=== PATIENT | male | born 1945 | race Caucasian/White ===

== ENCOUNTER 2024-10-10 14:48 | Outpatient (REF) | payer MEDICARE, SELFPAY ==
--- OUTSIDE RECORDS SUMMARY | 2024-10-10 15:44 | XMS_ITS | Clinical Summary ---
[facility] Organization [facility] Address [address] [place] [address] Care Team Providers Care Hot Stone Setter Name Role Phone Holden Sol MD Primary Care Provider [phone] Allergies No known active allergies Medications Medication Sig Dispensed Refills Start Date End Date Status atenolol (TENORMIN) tablet 25 mg Take 25 mg by mouth daily. 0 Active naproxen (NAPROSYN) 500 MG tablet Take 500 mg by mouth daily. 0 Active Active Problems No known active problems Family History Medical History Relation Name Comments Cancer Father Relation Name Status Comments Father Social History Tobacco Use Types Packs/Day Years Used Date Smoking Tobacco: Former Cigarettes Smokeless Tobacco: Never Alcohol Use Standard Drinks/Week Comments Yes 0 (1 standard drink = 0.6 oz pur e alcohol) Sex and Gender Information Value Date Recorded Sex Assigned at Not on file Gender Identity Not on file Sexual Orientation Not on file Last Filed Vital Signs Vital Sign Reading Time Taken Comments Blood Pressure 159/78 07/11/2020 10:53 AM EST Pulse 90 07/11/2020 10:53 AM EST Temperature 36.3 ??C (97.3 ??F) 07/11/2020 10:[address] Respiratory Rate - - Oxygen Saturation 100% 07/11/2020 10:53 AM EST Inhaled Oxygen Concentration - - Weight 83.9 kg (185 lb) 07/11/2020 10:53 AM EST Height 188 cm (6' 2 ) 07/11/2020 10:53 AM EST Body Mass Index 23.75 07/11/2020 10:53 AM EST Plan of Treatment Health Maintenance Due Date Last Done Comments COVID-19 Vaccine (#1) 02/29/1946 Depression Screening 1955 Preventative Health Evaluation 1961 Fall Risk Assessment 2008 RSV Adult > 60+ Yrs or (1 - 1-dose 75+ series) 2018 Shingrix-Zoster Vaccine (2 of 2) 04/18/2020 02/22/2020 DTap / Tdap / Td (2 - Td or Tdap) 12/09/2021 12/10/2011 Influenza Vaccine (#1) 2024 8, 07/01/2017, 08/02/2016, Additional history exists Pneumococcal Vaccine Completed 05/17/2018, 11/01/2013, 09/17/2005 Hepatitis B Vaccines Aged Out No long er eligible based on patient's age to complete this topic RSV Ped < 20 months Aged Out No longe r eligible based on patient's age to complete this topic Care Teams Hot Stone Setter Relationship Specialty Start Date End Date Holden Sol MD PCP - General Internal Medicine 07/11/20
--- OUTSIDE RECORDS SUMMARY | 2024-10-10 15:44 | XMS_ITS | Clinical Summary ---
Author Organization [facility] Address [address] [place] [address] Care Team Providers Care Seal Delivery Vehicle Team Technician Name Role Phone Holden Sol MD Primary Care Provider [phone] Allergies No known active allergies Medications amLODIPine (NORVASC) 5 mg tablet Take 1 Tablet by mouth daily. 4 Active tamsulosin (FLOMAX) 0.4 mg 24 hr capsule Take 1 Capsule by mouth daily for 360 days. Take 30 mins after same meal every day. - Oral Active cyanocobalamin (VITAMIN B-12) 1,000 mcg tablet TAKE 1 TABLET BY MOUTH EVERY DAY 90 tablet 1 4 Active folic acid (FOLVITE) 1 mg tablet Take 1 tablet (1,000 mcg total) by mouth 1 (one) time each day. 90 tablet 1 5 Active folic acid (FOLVITE) 1 mg tablet TAKE 1 TABLET BY MOUTH EVERY DAY 4 10/04/19 25 Discontinu ed(Reorder ) Active Problems Problem Noted Date Diagnosed Date Macrocytosis 06/14/2020 Hyperlipidemia 08/08/2019 Erectile dysfunction 05/24/2012 Hypertension 11/04/2010 Spinal stenosis 03/11/2009 Overview (05/25/2024): Severe to the point of almost not being able to walk at all. Has made good recovery with surgery. Still a little weakness in movement of the right foot however. Some metatarsal numbness residual. Immunizations Name Administration Dates Next Due Influenza Quadravalent, MDCK , 0.5ml, with preservative (Flucelvax) 6mo and older 07/01/2017 Influenza trivalent, 0.5mL ( Fluzone High-dose) 65yo and older 05/21/2022,05/06/2020,05/17/2018 Influenza trivalent, with pr eservative (Fluzone; Afluria) 6mo and older 08/02/2016,06/23/2015,07/17/2014,05/25,05/24/2012,05/27/2011,07/11/2010 ,06/26/2008,06/29/2007,07/31/2006,03/2005 Influenza, Unspecified 05/31/2023,06/14/2021 Pfizer (ages 12 & older) Biv alent, COVID-19 05/21/2022 Pneumococcal conjugate 13 va lent (Prevnar 13, PCV13) 2mo and older 05/17/2018 Pneumococcal polysaccharide 23 valent (Pneumovax 23) 2yo and older 11/01/2013,09/17/2005 Td Tetanus diptheria (Tdvax) 7yo and older 09/18/2003 Tdap Tetanus diptheria acell ular pertussis (Boostrix; Adacel) 7yo and older 04/16/2022,12/10/2011 Zoster Live 12/10/2011 Zoster recombinant (Shingrix ) 19yo and older 05/06/2020,02/22/2020 Surgical History Surgery Date Site/Laterality Comments BACK SURGERY PROCEDURE: HISTORICAL BACK SURGERY; COMMENT: for spinal stenosis COLONOSCOPY PROCEDURE: [place] COLONOSCOPY STOMA DX INCLUDING COLLJ SPEC SPX; COMMENT: 09/17/04, NORMAL EXAM COLONOSCOPY 09/19/15 PROCEDURE: [place] COLONOSCOPY STOMA W/RMVL ANGY POLYP/OTH LES SNARE; COMMENT: adenomas and tics; repeat in 3 yrs Medical History Medical History Date Comments Hypertension 11/04/2010 DX:Hypertension Erectile dysfunction 05/24/2012 DX:Erectile dysfunction Family History Medical History Relation Name Comments Colon cancer Father colon cancer AT the age of 90 Heart attack Mother myocardial infa rction, AT THE AGE OF 70 Blindness Neg Hx Cataracts Neg Hx Glaucoma Neg Hx Macular degeneration Neg Hx Strabismus Neg Hx Relation Name Status Comments Father Mother Social History Tobacco Use Types Packs/Day Years Used Date Smoking Tobacco: Former Smokeless Tobacco: Never Alcohol Use Standard Drinks/Week Comments Yes 0 (1 standard drink = 0.6 oz pur e alcohol) Sex and Gender Information Value Date Recorded Sex Assigned at Male 04/16/2022 10:41 PM EDT Legal Sex Male 3:59 PM EDT Gender Identity Male 04/16/2022 10:41 PM EDT Sexual Orientation Straight 04/16/2022 10 :41 PM EDT Obstetrics History Last Filed Vital Signs Vital Sign Reading Time Taken Comments Blood Pressure 152/64 07/05/2024 3:57 PM EST provider to recheck bp Pulse 92 07/05/2024 3:57 PM EST Temperature 36.6 ??C (97.8 ??F) 07/05/2024 3 :57 PM EST Respiratory Rate 14 07/05/2024 3:57 PM EST Oxygen Saturation 100% 07/05/2024 3:5 7 PM EST Inhaled Oxygen Concentration - - Weight 77.7 kg (171 lb 6.4 oz) 07/05/2024 3:57 PM EST Height 188 cm (6' 2 ) 07/05/2024 3:57 PM EST Body Mass Index 22.01 07/05/2024 3:57 PM EST Plan of Treatment Health Maintenance Due Date Last Done Comments Colorectal Cancer Screening: Colonoscopy 05/30/2021 Social Influencers of Health Screening 05/30/2021 Hypertension/CHF/CAD Annual BMP Blood Test 06/01/2025 06/01/2024, 06/08/2023 Falls Risk Assessment 07/05/2025 07/05/2024, 023 Medicare Annual Wellness Visit 07/05/2025 07/05/2024 Depression Screening 07/06/2025 07/06/2024, 06/30/20 23 Cholesterol Screening (Lipid Panel) 06/01/2029 06/01/2024, 06/08/2023 DTaP,Tdap,and Td Vaccines (4 - Td or Tdap) 04/16/2032 04/16/2022, 12/10/2011, 09/18/2003 Pneumococcal Vaccine: 50+ Years Completed 05/17/2018, 11/01/2013, 09/17/2005 Zoster Vaccines Completed 05/06/2020, 01/29, 12/10/2011 RSV Immunization Patients 60+ Years Old Completed 05/04/2023 COVID-19 Vaccine Completed 05/09/2024, 06/2024, 05/21/2023, Additional history exists Influenza Vaccine Completed 05/09/2024, , 05/21/2023, Additional history exists HIB Vaccines Aged Out No longer eligi ble based on patient's age to complete this topic HPV Vaccines Aged Out No longer eligi ble based on patient's age to complete this topic Hepatitis A Vaccines Aged Out No long er eligible based on patient's age to complete this topic Hepatitis B Vaccines Aged Out No long er eligible based on patient's age to complete this topic IPV Vaccines Aged Out No longer eligi ble based on patient's age to complete this topic MMR Vaccines Aged Out No longer eligi ble based on patient's age to complete this topic Meningococcal ACWY Vaccine Aged Out N o longer eligible based on patient's age to complete this topic Meningococcal B Vacine Aged Out No lo nger eligible based on patient's age to complete this topic RSV Immunization Patients Under 20 months Aged Out No longer eligible based on patient's age to complete this topic Varicella Vaccines Aged Out No longer eligible based on patient's age to complete this topic Procedures Procedure Name Priority Date/Time Associated Diagnosis Comments DEPRESSION SCREENING Routine 06/30/2023 FALLS RISK ASSESSMENT Routine 06/30/2023 ANNUAL BMP BLOOD TEST Routine 06/08/2023 LIPID PANEL Routine 06/08/2023 from Last 3 Months or Most Recently Relevant to Health Maintenance Results * Falls Risk Assessment (06/30/2023) Pathologist [facility] Falls Risk Assessment Abstracted Historical Provider MD HEALTH MAINTENANCE Final Result * Depression Screening (06/30/2023) Pathologist [facility] Depression Screening Abstracted us Historical Provider MD HEALTH MAINTENANCE Final Result * Annual BMP Blood Test (06/08/2023) Pathologist [facility] Annual BMP Blood Test Abstracted us Historical Provider HEALTH MAINTENANCE Final Result * Lipid panel (06/08/2023) LDL/HDL Ratio 3 0 - 4 Triglycerides 71 0 - 150 mg/dL Cholesterol 169 0 - 200 mg/dL HDL 61 >=40 mg/dL LDL Cholesterol 94 0 - 100 mg/dL Blood Venous blood specimen / Unknown Historical Provider LAB BLOOD ORDERABLES Kelly l Result from Last 3 Months or Most Recently Relevant to Health Maintenance Insurance MEDICARE Care Teams Seal Delivery Vehicle Team Technician Relationship Specialty Start Date End Date Holden Sol MD [address] [place] [id number] PCP - General Internal Medicine 04/15/15
[2024-10-10 16:19] LABS: Vitamin B12 994 pg/mL (200-900)
== END 2024-10-10 14:49 | disposition home or self-care (01) ==
LOC: HO.LAB 14:48
PROVIDERS: PCP Internal Medicine; Visit Provider Psychiatry & Neurology Neurology
DX: G30.9 Alzheimer's disease, unspecified (principal)
CPT/HCPCS: 36415; 82607

== ENCOUNTER 2025-02-01 08:48 | Outpatient (REF) | payer MEDICARE, SELFPAY ==
--- OUTSIDE RECORDS SUMMARY | 2025-02-01 09:26 | XMS_ITS | Clinical Summary ---
Author Organization [facility] Address [address] [place] [address] Care Team Providers Care Acetylene Plant Operator Name Role Phone Holden Sol MD Primary Care Provider [phone] Allergies No known active allergies Medications Medication [...] Td or Tdap) 12/09/2021 12/10/2011 Influenza Vaccine (Season Ended) 2025 05/17/2018, 07/01/2017, 08/02/2016, Additional history exists Pneumococcal Vaccine Completed 05/17/2018, 11/01/2013, 09/17/2005 Hepatitis B Vaccines Aged Out No long er eligible based on patient's age to complete this topic RSV Ped < 20 months Aged Out No longe r eligible based on patient's age to complete this topic Care Teams Acetylene Plant Operator Relationship Specialty Start Date End Date Holden Sol MD PCP - General Internal Medicine 07/11/20
== END 2025-02-01 08:49 | disposition home or self-care (01) ==
LOC: HO.LAB 08:48
PROVIDERS: PCP Internal Medicine; Visit Provider Psychiatry & Neurology Neurology
DX: G30.9 Alzheimer's disease, unspecified (principal); F02.80 Dementia in other diseases classified elsewhere, unspecified severity, without behavioral disturbance, psychotic disturbance, mood disturbance, and anxiety
CPT/HCPCS: 82542

== ENCOUNTER 2025-03-08 19:39 | Outpatient (REF) | payer MEDICARE, OTHER, SELFPAY ==
--- NOTE | ~2025-03-08 | MR_ITS ---
CLINICAL HISTORY: G30.9 - Alzheimers disease, unspecified --- Additional Notes or Special Instructions: MRI is urgent as the next dose of the med cannot be given before this MR Brain without gadolinium Comparison: None provided Findings: No restricted diffusion. No intra-axial mass or hemorrhage. No midline shift. No hydrocephalus. Age appropriate cerebral volume loss. Patchy high FLAIR signal within the periventricular and subcortical white matter. Vascular flow voids are intact. The orbits are normal. Mastoids are clear. Severe bilateral ethmoid sinus mucosal thickening. Mild bilateral maxillary sinus mucosal thickening. Right maxillary sinus retention cysts. No focal bone lesion. IMPRESSION: 1. No acute process. 2. Volume loss and small vessel ischemic disease. 3. Sinus disease. This document has been electronically signed by: Marimar Ortiz MD on 03/11/2025 15:04:15
== END 2025-03-08 19:40 | disposition home or self-care (01) ==
LOC: HO.MRI 19:39
PROVIDERS: PCP Internal Medicine; Visit Provider Psychiatry & Neurology Neurology
DX: G30.9 Alzheimer's disease, unspecified (principal); F02.80 Dementia in other diseases classified elsewhere, unspecified severity, without behavioral disturbance, psychotic disturbance, mood disturbance, and anxiety
CPT/HCPCS: 70551

== ENCOUNTER → 2025-03-08 19:39 | Outpatient (BNV) | payer MEDICARE, OTHER, SELFPAY | PROVIDERS: PCP Internal Medicine; Visit Provider Radiology Diagnostic Radiology | DX: G30.9 Alzheimer's disease, unspecified (principal); I67.82 Cerebral ischemia; J34.89 Other specified disorders of nose and nasal sinuses | CPT/HCPCS: 70551 ==

== ENCOUNTER 2025-04-04 16:26 | Outpatient (REF) | payer MEDICARE, OTHER, SELFPAY ==
--- NOTE | ~2025-04-04 | MR_ITS ---
EXAMINATION: MR BRAIN WITHOUT CONTRAST CLINICAL INFORMATION: Alzheimer's disease. COMPARISON: March 08, 2025. TECHNIQUE: MRI of the brain was obtained using routine sequences without contrast. FINDINGS: No restricted diffusion. No acute intracranial hemorrhage. No mass effect, midline shift, hydrocephalus or herniation. [place]-white matter differentiation is normal. Punctate susceptibility signal, subcortical left frontal white matter. 3 mm focal hyperintense T2 FLAIR signal, left frontal deep white matter. 5 mm focal hyperintense T2 FLAIR signal, right frontal deep matter. Prominence of the extra-axial CSF spaces cerebral sulci and ventricles involving mostly the frontal temporal lobes. Old lacunar infarcts with the cribriform pattern, basal ganglia. Left ventral deformity of the tj related to a prominent vertebral vascular system. Flow-void signal within the main cerebral vessels is normal. Sellar/suprasellar region demonstrated no gross masses or signal abnormality. There is normal position of the cerebellar tonsils. MR/MR head/brain wo con IMPRESSION: ARIA-E : Negative. ARIA-H : Negative. Old microhemorrhages, subcortical left frontal lobe. No acute brain abnormality. Electronically signed by: Kevin Hernandez MD 04/05/2025 07:14 AM EDT
--- OUTSIDE RECORDS SUMMARY | 2025-04-04 16:36 | XMS_ITS | Clinical Summary ---
Author Organization [facility] Address [address] [place] [address] Care Team Providers Care Pastoral Ministries Professor Name Role Phone Holden Sol MD Primary Care Provider [phone] Allergies No known active allergies Medications Medication [...] 90 07/11/2020 10:53 AM EST Temperature 36.3 C (97.3 F) 07/11/2020 10:53 AM EST Respiratory Rate - - Oxygen Saturation 100% [...] or Tdap) 12/09/2021 12/10/2011 Influenza Vaccine (#1) 2025 8, 07/01/2017, 08/02/2016, Additional history exists Pneumococcal Vaccine Completed 05/17/2018, 11/01/2013, 09/17/2005 Hepatitis B Vaccines Aged Out No long er eligible based on patient's age to complete this topic RSV Ped < 20 months Aged Out No longe r eligible based on patient's age to complete this topic Care Teams Pastoral Ministries Professor Relationship Specialty Start Date End Date Holden Sol MD PCP - General Internal Medicine 07/11/20
--- OUTSIDE RECORDS SUMMARY | 2025-04-04 16:36 | XMS_ITS ---
[facility] Name [facility] Organization Unknown Care Team Organization Name Specialty Phone Email Start Date End Da guzman [facility] Sweta Primary Care 05/06/2023 04/17/2024 [facility] Tavares Paredes Primary Care 07/07/2022 04/17/2024
--- OUTSIDE RECORDS SUMMARY | 2025-04-04 16:36 | XMS_ITS | Clinical Summary ---
Author Organization [facility] [place] Address [address] [place] [address] Care Team Providers Care Switch Foreman Name Role Phone Holden Sol MD Primary Care Provider [phone] Allergies No known active allergies Medications tamsulosin (FLOMAX) 0.4 mg 24 hr capsule Take 1 Capsule by mouth daily for 360 days. Take 30 mins after same meal every day. - Oral Active folic acid (FOLVITE) 1 mg tablet Take 1 tablet (1,000 mcg total) by mouth 1 (one) time each day. 90 tablet 1 10/04/2024 Active amLODIPine (NORVASC) 5 mg tablet Take 1.5 tablets (7.5 mg total) by mouth 1 (one) time each day. 45 each 3 01/16/2025 Active cyanocobalamin (VITAMIN B-12) 1,000 mcg tablet TAKE 1 TABLET BY MOUTH EVERY DAY 90 tablet 1 02/12/2025 Active Active Problems Problem Noted Date Diagnosed Date Macrocytosis 06/14/2020 Hyperlipidemia 08/08/2019 Erectile dysfunction 05/24/2012 Hypertension 11/04/2010 Spinal stenosis 03/11/2009 Overview (05/25/2024): Severe to the point of almost not being able to walk at all. Has made good recovery with surgery. Still a little weakness in movement of the right foot however. Some metatarsal numbness residual. Encounters Date Type Department Care Team Description 01/26/2025 1:47 PM EDT - 01/26/2025 11:59 PM EDT Hospital Encounter Radiology Department - [address] [phone] Alzheimer's disease, unspecified (CODE) ([facility] V24, [facility] V28) Discharge Disposition: Home or Self Care 01/16/2025 9:30 AM EDT Office Visit Adult Medicine [address] [phone] Holden Sol MD Right foot pain (Primary Dx); Bunion of great toe; Alzheimer's disease ([facility] V24, [facility] V28); Primary hypertension from Last 3 Months Immunizations Name Administration Dates Next Due Influenza [...] SURGERY; COMMENT: for spinal stenosis COLONOSCOPY PROCEDURE: CA COLONOSCOPY STOMA DX INCLUDING COLLJ SPEC SPX; COMMENT: 09/17/04, NORMAL EXAM COLONOSCOPY 09/19/15 PROCEDURE: CA COLONOSCOPY STOMA W/RMVL ANGY POLYP/OTH LES SNARE; [...] drink = 0.6 oz pur e alcohol) Housing Instability Answer Date Recorde d Are you worried that in the next 2 months you may not have stable housing? No 01/12/2025 Food Access & Nutrition Answer Date Rec orded Do you have access to a vari ety of food including fruits and vegetables? Yes 01/12/2025 Health Literacy Answer Date Recorded How often do you need to hav e someone help you when you read instructions, pamphlets, or other written material from your doctor or pharmacy? Never 01/12/2025 Caregiver: How often do you need to have someone help you when you read instructions, pamphlets, or other written material from your doctor or pharmacy? Not on file 01/12/2025 Financial Risk Answer Date Recorded How hard is it for you to pa y for the very basics like food, housing, medical care, and air conditioning / heating? Not very hard 01/12/2025 Transportation Answer Date Recorded Has the lack of transportati on kept you from meetings, work, or from getting things needed for daily living? No Has the lack of transportati on kept you from medical appointments or from getting medications? No 01/12/2025 Social Isolation Answer Date Recorded How often do you feel lonely or isolated from th ose around you? Never 01/12/2025 Food Risk Answer Date Recorded Within the past 12 months we worried whether our food would run out before we got money to buy more. Never true 01/12/2025 Within the past 12 months th e food we bought just didn't last and we didn't have money to get more. Never true 01/12/2025 Dependent Care Answer Date Recorded Do you need help finding or paying for care for your loved ones. For example, childcare worker or elderly care for an older adult? No 01/12/2025 Education Answer Date Recorded Do you think completing more education or training, like finishing a GED, going to college, or learning a trade, would be helpful for you? No 01/12/2025 Employment and Income Answer Date Recor ded During the last four weeks, have you been actively looking for work? No 01/12/2025 Living Situation Answer Date Recorded What is your living situation? 0 01/12/2025 Sex and Gender Information Value Date Recorded Sex Assigned at Male 04/16/2022 10:41 PM EDT Legal Sex Male 3:59 PM EDT Gender Identity Male 04/16/2022 10:41 PM EDT Sexual Orientation Straight 04/16/2022 10 :41 PM EDT Obstetrics History Last Filed Vital Signs Vital Sign Reading Time Taken Comments Blood Pressure 148/82 01/16/2025 9:28 AM EDT Pulse 102 01/16/2025 9:28 AM EDT Temperature 36.1 C (96.9 F) 01/16/2025 9:28 AM EDT Respiratory Rate 20 01/16/2025 9:28 AM EDT Oxygen Saturation 100% 07/05/2024 3:57 PM EST Inhaled Oxygen Concentration - - Weight 80.7 kg (178 lb) 01/16/2025 9:28 AM EDT Height 188 cm (6' 2 ) 01/16/2025 9:28 AM EDT Body Mass Index 22.85 01/16/2025 9:28 AM EDT Plan of Treatment Upcoming Encounters Date Type Department Care Team (Late st Contact Info) Description 04/24/2025 1:15 PM EDT Office Visit Adult Medicine [facility] [address] [place] [address] Holden Sol MD [address] [place] [address] Health Maintenance Due Date Last Done Comments Colorectal Cancer Screening: Colonoscopy 05/30/2021 Influenza Vaccine (#1) 2025 , 05/31/2023, 05/21/2023, Additional history exists Falls Risk Assessment 07/05/2025 07/05/2024, 023 Medicare Annual Wellness Visit 07/05/2025 07/05/2024 Social Influencers of Health Screening 01/12/2026 01/12/2025 Hypertension/CHF/CAD Annual BMP Blood Test 01/16/2026 01/16/2025, 06/01/2024, 06/08/2023 Cholesterol Screening (Lipid Panel) 06/01/2029 06/01/2024, 06/08/2023 DTaP,Tdap,and Td Vaccines (4 - Td or Tdap) 04/16/2032 04/16/2022, 12/10/2011, 09/18/2003 Pneumococcal Vaccine: 50+ Years Completed 05/17/2018, 11/01/2013, 09/17/2005 Zoster Vaccines Completed 05/06/2020, 01/29, 12/10/2011 RSV Immunization Adult Patients Completed 05/04/2023 COVID-19 Vaccine Completed 11/17/2024, 05/2024, 11/08/2023, Additional history exists Depression Screening Completed 01/12/2025, 06/30/20 23 HIB Vaccines Aged Out No longer eligi [...] age to complete this topic Meningococcal B Vaccine Aged Out No l onger eligible based on patient's age to complete this topic RSV Immunization Patients Under 20 months Aged Out No longer eligible based on patient's age to complete this topic Varicella Vaccines Aged Out No longer eligible based on patient's age to complete this topic Procedures Procedure Name Priority Date/Time Associated Diagnosis Comments EXTERNAL MRI REPORT 03/08/2025 EXTERNAL MRI REPORT 03/08/2025 MR BRAIN WO CONTRAST Routine 01/26/2025 3:16 PM EDT Alzheimer's disease, unspecified (CODE) ([facility] V24, [facility] V28) URIC ACID Routine 01/16/2025 10:26 AM EDT Right foot pain Bunion of great toe COMPREHENSIVE METABOLIC PANEL Routine 01/16/2025 10:26 AM EDT Bunion of great toe DEPRESSION SCREENING Routine 06/30/2023 FALLS RISK ASSESSMENT Routine 06/30/2023 LIPID PANEL Routine 06/08/2023 from Last 3 Months or Most Recently Relevant to Health Maintenance Results * External MRI Report (03/08/2025) Only the most recent of2 resultswithin the time period is included. Anatomical Region Laterality Modality Magnetic Resonan ce Provider [facility] MRI PROCEDURES Final Result * MR Brain wo Contrast (01/26/2025 3:16 PM EDT) Anatomical Region Laterality Modality Head and Neck Magnetic Resonan ce 01/26/2025 4:46 PM EDT Impressions 01/26/2025 4:55 PM EDT 1. No acute intracranial findings. 2. Unchanged chronic findings, including brain volume loss predominantly of the parietal lobes. -------- FINAL REPORT -------- Dictated By: Arleth Rodríguez Dictated Date: 01/26/2025 16:46 ET Assigned Physician: Arleth Rodríguez Reviewed and Electronically Signed By: Arleth Rodríguez Signed Date: 01/26/2025 16:55 ET Workstation ID: [id number] Transcribed By: Self Edit Transcribed Date: 01/26/2025 16:46 ET Narrative 01/26/2025 4:55 PM EDT MR BRAIN WO CONTRAST TECHNIQUE: Multisequence MRI of the brain was performed without administration of intravenous contrast. COMPARISON: Brain MRI on July 07, 2024. HISTORY: Memory loss. FINDINGS: Brain Parenchyma: Redemonstration of brain volume loss predominantly of the parietal lobes. No shift of midline structures. Unchanged tiny focus of susceptibility artifact in the lateral aspect of the left frontal lobe (901:17). No evidence of acute parenchymal hemorrhage, acute infarct or mass effect. Similar scattered white matter lesions, predominantly within bilateral frontal lobes. Ventricular System and Extra-Axial Spaces: The ventricles and cortical sulci are prominent, as commonly seen in patients of this age. No hydrocephalus. No extra-axial fluid collection. Extracranial Structures: Arterial flow voids in the skull base are present. Mucosal thickening of the ethmoid air cells and maxillary sinuses, likely inflammatory. Mucous retention cyst within the right maxillary sinus. Bilateral mastoid air cells are clear. Procedure Note Arleth Rodríguez MD - 01/26/2025 MR BRAIN WO CONTRAST TECHNIQUE: Multisequence MRI of the brain was performed withoutadministration of intravenous contrast. COMPARISON: Brain MRI on July 07, 2024. HISTORY: Memory loss. FINDINGS: Brain Parenchyma: Redemonstration of brain volume loss predominantly ofthe parietal lobes. No shift of midline structures. Unchanged tiny focusof susceptibility artifact in the lateral aspect of the left frontal lobe(901:17). No evidence of acute parenchymal hemorrhage, acute infarct ormass effect. Similar scattered white matter lesions, predominantly withinbilateral frontal lobes. Ventricular System and Extra-Axial Spaces: The ventricles and corticalsulci are prominent, as commonly seen in patients of this age. Nohydrocephalus. No extra- axial fluid collection. Extracranial Structures: Arterial flow voids in the skull base arepresent. Mucosal thickening of the ethmoid air cells and maxillarysinuses, likely inflammatory. Mucous retention cyst within the rightmaxillary sinus. Bilateral mastoid air cells are clear. IMPRESSION: 1. No acute intracranial findings. 2. Unchanged chronic findings, including brain volume loss predominantlyof the parietal lobes. -------- FINAL REPORT -------- Dictated By: Arleth Rodríguez Dictated Date: 01/26/2025 16:46 ET Assigned Physician: Arleth Rodríguez Reviewed and Electronically Signed By: Arleth Rodríguez Signed Date: 01/26/2025 16:55 ET Workstation ID: [id number] Transcribed By: Self Edit Transcribed Date: 01/26/2025 16:46 ET Nancy Balderas MD IMG MRI PROCEDURES Final Re sult * Uric acid (01/16/2025 10:26 AM EDT) Pathologist [facility] Uric Acid 7.6 3.7 - 9.2 mg/dL LAB CHEMISTRY METHOD 01/16/2025 12:49 PM EDT [facility] Blood Venous blood specimen / Unknown Venipuncture / Unknown 01/16/2025 10:26 AM EDT 01/16/2025 10:26 AM EDT Holden Sol MD LAB BLOOD ORDERABLES Final Resul t [facility] [address] [place] [address], [place] [phone] * (ABNORMAL) Comprehensive metabolic panel (01/16/2025 10:26 AM EDT) Pathologist [facility] Sodium 140 133 - 145 mmol/L LAB CHEMISTRY METHOD 01/16/2025 12:49 PM EDT [facility] Potassium 4.3 3.5 - 5.5 mmol/L LAB CHEMISTRY METHOD 01/16/2025 12:49 PM EDT [facility] Chloride 110 96 - 110 mmol/L LAB CHEMISTRY METHOD 01/16/2025 12:49 PM EDT [facility] CO2 22 21 - 32 mmol/L LAB CHEMISTRY METHOD 01/16/2025 12:49 PM EDT [facility] Anion Gap 8 3 - 11 LAB CHEMISTRY METHOD 01/16/2025 12:49 PM EDT [facility] Glucose 93 70 - 100 mg/dL LAB CHEMISTRY METHOD 01/16/2025 12:49 PM [facility] BUN 17 5 - 25 mg/dL LAB CHEMISTRY METHOD 01/16/2025 12:49 PM [facility] Creatinine 1.25 0.70 - 1.30 mg/dL LAB CHEMISTRY METHOD 01/16/2025 12:49 PM [facility] eGFR 58(L) >=60 mL/min/1. 73m2 LAB CHEMISTRY METHOD 01/16/2025 12:49 PM [facility] Comment:Calculation based on the Chronic Kidney Disease Epidemiology Collaboration (CKD-EPI) equation refit without adjustment for race. BUN/Creatinine Ratio 13.6 LAB CHEMISTRY METHOD 01/16/2025 12:49 PM [facility] Calcium 9.5 8.5 - 10.5 mg/dL LAB CHEMISTRY METHOD 01/16/2025 12:49 PM [facility] AST (SGOT) 14 10 - 42 unit/L LAB CHEMISTRY METHOD 01/16/2025 12:49 PM [facility] ALT (SGPT) 18 10 - 60 unit/L LAB CHEMISTRY METHOD 01/16/2025 12:49 PM [facility] Alkaline Phosphatase 86 42 - 121 unit/L LAB CHEMISTRY METHOD 01/16/2025 12:49 PM [facility] Total Protein 7.1 6.0 - 8.0 g/dL LAB CHEMISTRY METHOD 01/16/2025 12:49 PM [facility] Albumin 3.7 3.2 - 5.0 g/dL LAB CHEMISTRY METHOD 01/16/2025 12:49 PM [facility] Total Bilirubin 1.0 0.0 - 1.4 mg/dL LAB CHEMISTRY METHOD 01/16/2025 12:49 PM [facility] Blood Venous blood specimen / Unknown Venipuncture / Unknown 01/16/2025 10:26 AM EDT 01/16/2025 10:26 AM EDT Holden Sol MD LAB BLOOD ORDERABLES Final [facility]ul [facility] [address] [place] [address], * Falls Risk Assessment (06/30/2023) Falls Risk Assessment Abstracted Historical Provider HEALTH MAINTENANCE Final Result * Depression Screening (06/30/2023) Depression Screening Abstracted Historical Provider HEALTH MAINTENANCE Final Result * [...] Recently Relevant to Health Maintenance Insurance MEDICARE [facility] Care Teams Switch Foreman Relationship Specialty Start Date End Date Holden Sol MD [address] [place] [address] PCP - General Internal Medicine 04/15/15
== END 2025-04-04 16:27 | disposition home or self-care (01) ==
LOC: HO.MRI 16:26
PROVIDERS: PCP Internal Medicine; Visit Provider Psychiatry & Neurology Neurology
DX: G30.9 Alzheimer's disease, unspecified (principal); F02.80 Dementia in other diseases classified elsewhere, unspecified severity, without behavioral disturbance, psychotic disturbance, mood disturbance, and anxiety
CPT/HCPCS: 70551

== ENCOUNTER → 2025-04-04 16:31 | Outpatient (BNV) | payer MEDICARE, OTHER, SELFPAY | PROVIDERS: PCP Internal Medicine; Visit Provider Radiology Diagnostic Radiology | DX: G30.9 Alzheimer's disease, unspecified (principal) | CPT/HCPCS: 70551 ==

== ENCOUNTER 2025-04-16 15:28 | Outpatient (AMB) | payer MEDICARE, OTHER, SELFPAY ==
--- NOTE | 2025-04-16 15:50 | A.OFFVIS_ITS ---
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 An MRI of brain was done that revealed mild atrophy, and he was referred here. His clinical evaluation suggested mild Alzheimer type dementia (MOCA 25). His brain myloid PET done in Sep was positive. After discussing risks and benefits, Kisunla (donanemab) was started on January 23, 2025. He is presenting with management of Alzheimer's Disease and coordination for infusion therapy. During recent infusion therapies for Alzheimer's management, the patient reported significant side effects, including chills and sore back, necessitating post-procedural rest and assistance for transportation. Notably, the adverse reactions intensified in subsequent infusions, prompting consideration for premedication to alleviate symptoms. The patient is scheduled for a double dosage infusion on April 25, with the subsequent session planned for May 15. Previous MRI findings were stable, offering reassurance regarding treatment outcomes. The patient noted improved dream patterns when on oral Alzheimer medication but required dosage adjustments due to suboptimal therapeutic effects. Discussions included the potential necessity of liver function tests to monitor medication impacts. [facility] Medical History (Updated 04/16/25 @ 15:55 by Nancy Balderas MD) Alzheimer dementia Review of Systems Const Details: - Neurological: Reports improved dream quality with medication; Denies any new neurological symptoms. - Musculoskeletal: Reports back pain after infusions, primarily in the solar plexus area. - Psychiatric: Reports increased quality of dreams. - General: Reports chills as a side effect of infusion therapy. - Gastrointestinal: Denies any liver function concerns, pending assessment. Physical Exam Neuro Other: Mental Status: Alert and oriented to person, place, and time. Normal attention. Normal spontaneous speech, fluency, and comprehension. Cranial Nerves: CN II: Visual sneed full to confrontation, visual acuity intact. CN III, IV, : Pupils equal, round, reactive to light and accommodation. Extraocular movements are normal. CN V: Facial sensation is normal. CN VII: Facial movements symmetrical. CN VIII: Hearing intact to bedside conversation is normal. CN IX, X: Palate elevates symmetrically. CN XI: Shoulder shrug and head turn symmetrical. CN XII: Tongue midline without atrophy or fasciculations. Extrapyramidal: Full facial expressions and blinking. No rigidity. Movements are appropriate with no tremor or abnormality. Speech: Normal; no dysarthria or tremor. Assessment & Plan Assessment & Plan (1) Alzheimer dementia: Comment: MRI brain WO at [facility] on Apr 04, 2025: No change MRI brain WO at [facility] on January 26, 2025: Mod cortical atrophy, more pronounced in parietal regions, no new lesion MRI brain WO at [facility] in Jun 2024: Biparietal atrophy (reported) Brain amyloid PET in [facility] in Sep 2024: + study Code(s): G30.9 - Alzheimer's disease, unspecified; F02.80 - Dementia in other diseases classified elsewhere, unspecified severity, without behavioral disturbance, psychotic disturbance, mood disturbance, and anxiety Category: Medical Qualifiers: Alzheimer's disease onset: late onset Dementia severity: mild Dementia behavioral or psychological symptom: without behavioral, psychotic, or mood d isturbance or anxiety Qualified Code(s): G30.1 - Alzheimer's disease with late onset; F02.A0 - Dementia in other diseases classified elsewhere, mild, without behavioral disturbance, psychotic disturbance, mood disturbance, and anxiety Plan Impression: a: Alzheimer disease, mild b: Short-term side effects from Kisunla infusion Rec: a: Pre-med with Tylenol and Benadryl for infusion b: Continue infusion for now c: LFTs d: Donepezil 10mg a day Medications: New donepezil 10 mg PO BEDTIME 90 tabs 0RF Coding Level of Care Code Est Pt Level 5 (46455) Diagnoses Mild late onset Alzheimer's dementia without behavioral disturbance, psychotic disturbance, mood disturbance, or anxiety G30.1; F02.A0 Alzheimer's disease onset: late onset Dementia severity: mild Dementia behavioral or psychological symptom: without behavioral, psychotic, or mood disturbance or anxiety
--- OUTSIDE RECORDS SUMMARY | 2025-04-16 15:59 | XMS_ITS | Clinical Summary ---
Author Organization [facility] Address [address] [place] [address] Care Team Providers Care Tool Tender Name Role Phone Holden Sol MD Primary Care Provider [phone] Allergies No known active allergies Medications Medication [...] age to complete this topic Care Teams Tool Tender Relationship Specialty Start Date End Date Holden Sol MD PCP - General Internal Medicine 07/11/20
== END 2025-04-16 16:30 | disposition home or self-care (01) ==
LOC: HO.HSM 15:28
PROVIDERS: PCP Internal Medicine; Visit Provider Psychiatry & Neurology Neurology
DX: G30.1 Alzheimer's disease with late onset (principal); F02.A0 Dementia in other diseases classified elsewhere, mild, without behavioral disturbance, psychotic disturbance, mood disturbance, and anxiety
CPT/HCPCS: 99214

== ENCOUNTER → 2025-04-16 15:28 | Outpatient (BNVA) | payer MEDICARE, OTHER, SELFPAY | PROVIDERS: PCP Internal Medicine; Visit Provider Psychiatry & Neurology Neurology | DX: G30.1 Alzheimer's disease with late onset (principal); F02.A0 Dementia in other diseases classified elsewhere, mild, without behavioral disturbance, psychotic disturbance, mood disturbance, and anxiety | CPT/HCPCS: 99212 ==

== ENCOUNTER → 2025-07-16 17:57 | Outpatient (BNV) | payer MEDICARE, OTHER, SELFPAY | PROVIDERS: PCP Internal Medicine; Visit Provider Radiology Diagnostic Radiology | DX: G30.1 Alzheimer's disease with late onset (principal); I67.82 Cerebral ischemia; J34.89 Other specified disorders of nose and nasal sinuses; H44.529 Atrophy of globe, unspecified eye | CPT/HCPCS: 70551 ==

== ENCOUNTER 2025-07-16 17:58 | Outpatient (REF) | payer MEDICARE, OTHER, SELFPAY ==
--- NOTE | ~2025-07-16 | MR_ITS ---
EXAMINATION: MR BRAIN WITHOUT CONTRAST CLINICAL INFORMATION: G 30.1. Alzheimer's disease with late onset. COMPARISON: April 04, 2025. TECHNIQUE: MRI of the brain was obtained using routine sequences without contrast. FINDINGS: No restricted diffusion. No acute intracranial hemorrhage, mass effect, midline shift, hydrocephalus or herniation. Susceptibility signal, left frontal white matter. Keene-white matter differentiation is normal. Multiple old lacunar infarcts in the basal ganglia and extracapsular. Prominence of the extra-axial CSF spaces cerebral sulci and ventricles likely central volume loss. No signal abnormality in the hippocampi. Flow-void signal within the main cerebral vessels is normal. Sellar/suprasellar region demonstrated no gross signal abnormality or masses. Craniocervical junction is intact with normal position of the cerebellar tonsils. Few hyperintense T2 FLAIR signal within the subcortical white matter of the frontal lobes. Mucosal thickening, paranasal sinuses. Mucus retention cyst, right maxillary sinus. Effervescent secretions, left maxillary sinus. MR/MR head/brain wo con IMPRESSION: No acute intracranial hemorrhage or acute ischemia/stroke. No cerebral edema. Small vessel occlusive disease. Global atrophy. 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 Electronically signed by: Kevin Hernandez MD 07/17/2025 07:24 AM [facility]
== END 2025-07-16 17:59 | disposition home or self-care (01) ==
LOC: HO.MRI 17:58
PROVIDERS: PCP Internal Medicine; Visit Provider Psychiatry & Neurology Neurology
DX: G30.1 Alzheimer's disease with late onset (principal); F02.A0 Dementia in other diseases classified elsewhere, mild, without behavioral disturbance, psychotic disturbance, mood disturbance, and anxiety
CPT/HCPCS: 70551